=== PATIENT | female | born 1975 | race Caucasian/White ===

== ENCOUNTER 2016-09-30 16:46 | Emergency (ER) | payer SELFPAY ==
[2016-09-30 17:10] VITALS: BP 133/73
--- NOTE | 2016-09-30 18:20 | UC ---
Dizzy HPI HPI Summary: The patient comes in today for: 1. Headache, sneezing, coughing, chest pain, shortness of breath: Onset: 2 days ago. Palliative/provocative: Nothing makes her symptoms better or worse. Toya Mosqueda did not help neither did theraflu. Quality: Pressure Region: Frontal Severity: 7/10 Time: Comes and goes. Associated symptoms: Fever: None. Cough: production: None. Rhinitis: Present, green. Sinus pressure: None. Wheezing: "periodically." Inhalers: None. Chest pain: lower and left sternum.--aching and burning--needles once in a while * - History Of Current Complaint Chief Complaint: UCRespiratory Stated Complaint: FLU SXS,SOB Time Seen by Provider: 09/30/16 18:05 Hx Obtained From: Patient Hx Last Menstrual Period: 09/06/16 - Allergies/Home Medications Allergies/Adverse Reactions: Allergies Allergy/AdvReac Type Severity Reaction Status Date / Time No Known Allergies Allergy Verified 09/30/16 17:09 Home Medications: Home Medications Nabumetone TAB* [Relafen TAB*] 500 mg PO BID 09/30/16 [History Confirmed ] Tizanidine HCl 6 mg PO BID 09/30/16 [History Confirmed 09/30/16] traZODone TAB* [Desyrel TAB*] 100 mg PO BEDTIME 09/30/16 [History Confirmed ] PMH/Surg Hx/FS Hx/Imm Hx Previously Healthy: No - Chronic lower back pain with spinal cord stimulator, herpes, colitis Endocrine History Of: Denies: Diabetes, Thyroid Disease, Hyperthyroidism, Hypothyroidism, Dyslipidemia Cardiovascular History Of: Denies: Cardiac Disorders, Hypertension, Pacemaker/ICD, Myocardial Infarction , Congestive Heart Failure, Atrial Fibrillation, Deep Vein Thrombosis, Bleeding Disorders Respiratory History Of: Denies: COPD, Asthma, Bronchitis, Pneumonia, Pulmonary Embolism GI/ History Of: Denies: Gastroesophageal Reflux, Ulcer, Gastrointestinal Bleed, Gall Bladder Disease, Kidney Stones, Diverticulitis, Renal Disease, Urosepsis Neurological History Of: Denies: TIA, CVA, Dementia, Seizures, Migraine Psychological History Of: Reports: Depression Denies: Anxiety, Bipolar Disorder, Schizophrenia, Post Traumatic Stress Disorder Cancer History Of: Denies: Lung Cancer, Colorectal Cancer, Breast Cancer, Prostate Cancer, Cervical Cancer Other History Of: Negative For: HIV, Hepatitis B, Hepatitis C, Anticoagulant Therapy - Surgical History Surgical History: Yes Surgery Procedure, Year, and Place: appy. tubaligation. (unsure of tonsilectomy). L5/S1 FUSION WITH A "CAGE" 01/05/13. Spinal cord stimulator 06/22 - Family History Known Family History: Positive: Hypertension Negative: Cardiac Disease - Social History Occupation: Employed Full-time Alcohol Use: see note Alcohol Amount: quit 3 years ago Substance Use Type: None Smoking Status (MU): Heavy Every Day Tobacco Smoker Type: Cigarettes Amount Used/How Often: 1 pack daily Review of Systems Constitutional: Negative Skin: Negative Eyes: Negative ENT: Nasal Discharge Respiratory: Cough Cardiovascular: Chest Pain Gastrointestinal: Negative Genitourinary: Negative All Other Systems Reviewed And Are Negative: Yes Physical Exam Triage Information Reviewed: Yes Appearance: Well-Appearing - Except for her coughing., No Pain Distress, Well- Nourished Vital Signs: Initial Vital Signs Temp 98.7 F 09/30/16 17:05 Pulse 98 09/30/16 17:05 Resp 18 09/30/16 17:05 BP 133/73 09/30/16 17:05 Pulse Ox 96 09/30/16 17:05 Vital Signs Reviewed: Yes Eyes: Positive: Conjunctiva Clear. Negative: Discharge ENT: Positive: Hearing grossly normal. Negative: Pharyngeal erythema, Nasal congestion, Nasal drainage, TM bulging, TM dull, TM red, Tonsillar swelling, Tonsillar exudate Dental: Negative: Gross Decay/Caries @, Dental Fracture @ Neck: Positive: Supple, Nontender, No Lymphadenopathy. Negative: Nuchal Rigidity Respiratory: Positive: Chest non-tender, Lungs clear, No respiratory distress, No accessory muscle use. Negative: Crackles, Wheezing Cardiovascular: Positive: RRR, No Murmur Abdomen Description: Positive: Nontender, No Organomegaly, Soft. Negative: Distended, Guarding Musculoskeletal: Positive: Strength Intact, ROM Intact, No Edema, Other: - Pressure with palpation of the left lower sternal border elicits the chest pain of which she complained in the HPI. Neurological: Positive: Alert, Muscle Tone Normal Psychological: Positive: Age Appropriate Behavior, Consolable Skin: Negative: rashes, breakdown Dizzy Course/Dx - Course Course Of Treatment: Patient told of her treatment option. - Differential Dx/Diagnosis Provider Diagnoses: Sinusitis. Bronchospasm Discharge - Discharge Plan Condition: Stable Disposition: HOME Patient Education Materials: Bronchospasm (ED), Sinusitis (ED) Forms: *Work Release Referrals: No Primary Care Phys,NOPCP [Primary Care Provider] -
== END 2016-09-30 18:54 | disposition home or self-care (01) ==
LOC: UCCORT 16:46
DX: J32.9 Chronic sinusitis, unspecified (principal); J98.01 Acute bronchospasm; M54.5 Low back pain; F32.9 Major depressive disorder, single episode, unspecified; F17.210 Nicotine dependence, cigarettes, uncomplicated
CPT/HCPCS: 93005; 99212; G0463

== ENCOUNTER 2019-01-20 05:01 | Emergency (ER) | payer OTHER ==
--- NOTE | 2019-01-20 05:26 | ED ---
Substance Abuse/Use - HPI Summary HPI Summary: This pt is a 43 Y/O M presenting to [facility] with a CC of substance abuse per work. The pt states that people at work thought that she was high and she was directed to come here for a drug taste to make sure that she is clean. She denies any CP, SOB, fevers, chills, N/V, headaches, and sore throats. She has no aggravating or alleviating factors. She has a PMHx of back problems. - History Of Current Complaint Chief Complaint: EDGeneral Stated Complaint: NEEDS DRUG TEST FOR WORK PER PT Time Seen by Provider: 01/20/19 05:11 Hx Obtained From: Patient Hx Last Menstrual Period: 09/06/16 Severity Currently: Mild Aggravating Factor(s): Nothing Alleviating Factor(s): Nothing Associated Signs And Symptoms: Negative - CP, SOB, fevers, chills, N/V, headaches, and sore throats. - Allergies/Home Medications Allergies/Adverse Reactions: Allergies Allergy/AdvReac Type Severity Reaction Status Date / Time No Known Allergies Allergy Verified 01/20/19 05:05 PMH/Surg Hx/FS Hx/Imm Hx Previously Healthy: Yes Endocrine/Hematology History: Denies: Hx Anticoagulant Therapy, Hx Diabetes, Hx Thyroid Disease Cardiovascular History: Denies: Hx Congestive Heart Failure, Hx Deep Vein Thrombosis, Hx Hypertension , Hx Myocardial Infarction, Hx Pacemaker/ICD Respiratory History: Denies: Hx Asthma, Hx Chronic Obstructive Pulmonary Disease (COPD), Hx Lung Cancer, Hx Pneumonia, Hx Pulmonary Embolism GI History: Denies: Hx Gall Bladder Disease, Hx Gastrointestinal Bleed, Hx Ulcer, Hx Urosepsis History: Denies: Hx Kidney Stones, Hx Renal Disease Neurological History: Denies: Hx Dementia, Hx Migraine, Hx Seizures, Hx Transient Ischemic Attacks (TIA) Psychiatric History: Reports: Hx Depression Denies: Hx Anxiety, Hx Schizophrenia, Hx Bipolar Disorder - Surgical History Surgery Procedure, Year, and Place: appy. tubaligation. (unsure of tonsilectomy). L5/S1 FUSION WITH A "CAGE" 01/05/13. 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 Denies: Traveled Outside the [place] in Last 30 Days - Family History Known Family History: Positive: Hypertension Negative: Cardiac Disease - Social History Alcohol Use: None Alcohol Amount: quit 3 years ago Substance Use Type: Reports: None Smoking Status (MU): Heavy Every Day Tobacco Smoker Type: Cigarettes Amount Used/How Often: 1 pack daily Review of Systems Negative: Fever, Chills Negative: Sore Throat Negative: Chest Pain Negative: Shortness Of Breath Negative: Vomiting, Nausea Negative: Headache All Other Systems Reviewed And Are Negative: Yes Physical Exam - Summary Physical Exam Summary: Appearance: Well appearing, no pain distress Skin: warm, dry, reflects adequate perfusion Head/face: normal Eyes: EOMI, CARY ENT: normal Neck: supple, non-tender Respiratory: CTA, breath sounds present Cardiovascular: RRR, pulses symmetrical Abdomen: non-tender, soft Musculoskeletal: normal, strength/ROM intact Neuro: normal, sensory motor intact, A&Ox3 Triage Information Reviewed: Yes Vital Signs On Initial Exam: Initial Vitals Temp Pulse Resp BP Pulse Ox 98.6 F 108 16 133/98 98 01/20/19 05:02 01/20/19 05:02 01/20/19 05:02 01/20/19 05:02 01/20/19 05:02 Vital Signs Reviewed: Yes Diagnostics - Vital Signs Vital Signs Temp Pulse Resp BP Pulse Ox 01/20/19 05:02 98.6 F 108 16 133/98 98 - Laboratory Result Diagrams: 01/20/19 05:39 01/20/19 05:39 Lab Statement: Any lab studies that have been ordered have been reviewed, and results considered in the medical decision making process. Course/Dx - Course Course Of Treatment: This pt is a 43 Y/O M presenting to [facility] with a CC of substance abuse per work. The pt states that people at work thought that she was high and she was directed to come here for a drug taste to make sure that she is clean. Her PE found no acute abnormalities. This pt will be discharged home with a Dx of a Medical screening exam. Her labs were reviewed. - Diagnoses Provider Diagnoses: Encounter for medical screening examination Discharge - Sign-Out/Discharge Documenting (check all that apply): Patient Departure - discharge Patient Received Moderate/Deep Sedation with Procedure: No - Discharge Plan Condition: Stable Disposition: HOME Patient Education Materials: Medical Clearance for Substance Abuse Treatment ( ED) Referrals: [facility] [Outside] - 2 Days Additional Instructions: PLEASE FOLLOW UP WITH [facility] IN 1-3 DAYS AND RETURN TO THE EMERGENCY DEPARTMENT FOR ANY NEW OR WORSENING SYMPTOMS. - Attestation Statements Document Initiated by Scribe: Yes Documenting Scribe: Frank Bearden Provider For Whom Scribe is Documenting (Include Credential): Ken Coley MD Scribe Attestation: Frank Bautista, scribed for Ken Coley MD on 01/20/19 at 0630. Status of Scribe Document: Ready
[2019-01-20 05:45] LABS: ABS Basophils 0.2 10^3/ul (0-0.2); ABS Eosinophils 0.1 10^3/ul (0-0.6); ABS Lymphocytes 1.5 10^3/ul (1.0-4.8); ABS Monocytes 1.2 10^3/ul (0-0.8); ABS Neutrophils 12.3 10^3/ul (1.5-7.7); Eosinophil % 0.3 %; Hematocrit 33 % (35-47); Lymphocyte % 9.9 %; Mean Corpuscular HGB Conc 33 g/dL (31-36); Mean Corpuscular Hemoglobin 29 pg (27-31); Mean Corpuscular Volume 87 fL (80-97); Mean Platelet Volume 7.2 fL (7.4-10.4); Platelet Count 315 10^3/uL (150-450); Red Blood Count 3.79 10^6 /uL (3.70-4.87); Red Cell Distribution Width 15 % (10-15); White Blood Count 15.2 10^3/uL (3.5-10.8)
[2019-01-20 06:03] LABS: ALT 14 U/L (7-52); AST 20 U/L (13-39); Albumin 4.3 g/dL (3.2-5.2); Albumin/Globulin Ratio 1.5 (1-3); Alkaline Phosphatase 71 U/L (34-104); Anion Gap 10 mmol/L (2-11); BUN/Creatinine Ratio 22.4 (8-20); Blood Urea Nitrogen 13 mg/dL (6-24); CO2 Carbon Dioxide 23 mmol/L (22-32); Calcium 8.6 mg/dL (8.6-10.3); Chloride 102 mmol/L (101-111); EGFR Non-African American 112.4 (>60); Globulin 2.8 g/dL (2-4); Glucose 111 mg/dL (70-100); Potassium 3.3 mmol/L (3.5-5.0); Sodium 135 mmol/L (135-145); Total Protein 7.1 g/dL (6.4-8.9)
[2019-01-20] MEDS ORDERED: Potassium Chlor TAB* 20 MEQ TAB.ER PO ONE (06:24)
[2019-01-20 06:26] LABS: Acetaminophen < 15 mcg/mL; Alcohol < 10 mg/dL (<10); Salicylate < 2.50 mg/dL (<30)
[2019-01-20 06:37] LABS: Urine Benzodiazepine Screen None Detected (None Detect); Urine Opiates Screen None Detected (None Detect)
[2019-01-20 06:41] LABS: TSH (Thyroid Stimulating Horm) 3.78 mcIU/mL (0.34-5.60)
[2019-01-20 06:43] LABS: Urine Appearance Cloudy; Urine Bacteria Absent (Absent); Urine Bilirubin Negative (Negative); Urine Blood 1+ (Negative); Urine Color Yellow; Urine Glucose Negative (Negative); Urine Ketones Negative (Negative); Urine Nitrite Negative (Negative); Urine Protein Negative (Negative); Urine Red Blood Cell 2+(6-10/hpf) (Absent); Urine Specific Gravity 1.016 (1.010-1.030); Urine Squamous Epithelial Cell Present (Absent); Urine Urobilinogen Negative (Negative); Urine White Blood Cell Trace(0-5/hpf) (Absent)
[2019-01-20 07:15] VITALS: BP 120/78
== END 2019-01-20 07:05 | disposition home or self-care (01) ==
LOC: ED 05:01
DX: Z00.00 Encounter for general adult medical examination without abnormal findings (principal); F17.210 Nicotine dependence, cigarettes, uncomplicated; F32.9 Major depressive disorder, single episode, unspecified
CPT/HCPCS: 36415; 80053; 80307; 80320; 80329; 81003; 81015; 84443; 85025; 87086; 99282; A9270-GY; G0480